=== PATIENT | male | born 1960 | race Caucasian/White ===

== ENCOUNTER 2017-06-21 17:17 | Emergency (ER) | payer SELFPAY ==
[~2017-06-21] VITALS: Ht 177.8 cm; Wt 77.0 kg
[~2017-06-21 17:17] MED LIST: METF500 PO
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
[2017-06-21 17:43] VITALS: BP 133/82; PULSE 92; RESP 20; TEMP 98.2; O2SAT 100
[2017-06-21 17:48] VITALS: BP 133/82; PULSE 92; RESP 18; TEMP 98.2; O2SAT 100
[2017-06-21] MEDS ORDERED: KETOROLAC TROMETHAMINE 60 MG/2 ML (IM) VIAL IM ONE (18:15)
[2017-06-21] MEDS ORDERED: GABA300C5 PO (18:16)
[2017-06-21] MEDS ORDERED: TRAM50TA PO (18:16)
[2017-06-21] MEDS ORDERED: NOVO7030P2 SQ (18:16)
--- NOTE | 2017-06-21 18:22 | RADRPT ---
EXAM DATE/TIME: 06/21/2017 17:50 [facility] COMPARISON: No previous studies available for comparison. INDICATIONS : Right lower leg pain; fall today. MEDICAL HISTORY : None. SURGICAL HISTORY : ORIF right femur. ENCOUNTER: Initial ACUITY: 1 day PAIN SCORE: 10/10 LOCATION: Right lower leg. FINDINGS: The bones are osteopenic. There is a hairline nondisplaced fracture of the proximal tibial shaft just below the tibial tuberosity. No other fracture identified. No dislocation. Remote healed fracture di stal femur with plate fixation. CONCLUSION: 1. Nondisplaced fracture proximal tibial shaft. Jovani Mckeon MD on June 21, 2017 at 18:18 Board Certified Radiologist. This report was verified electronically.
--- NOTE | 2017-06-21 18:23 | RADRPT ---
EXAM DATE/TIME: 06/21/2017 17:55 [facility] COMPARISON: No previous studies available for comparison. INDICATIONS : Right femur pain; fall today. MEDICAL HISTORY : None. SURGICAL HISTORY : ORIF right femur. ENCOUNTER: Initial ACUITY: 1 day PAIN SCORE: 10/10 LOCATION: Right femur. FINDINGS: Remote fracture distal femur with previous plate fixation. Bones osteopenic. No acute fracture. CONCLUSION: 1. Remote fracture right femur with fixation. No acute fracture seen in the femur. Jovani Mckeon MD on June 21, 2017 at 18:20 Board Certified Radiologist. This report was verified electronically.
[2017-06-21 19:19] VITALS: BP 133/85; PULSE 88; RESP 18; O2SAT 98
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
[2017-06-21] MEDS ORDERED: NORC5TAB PO (21:13)
[2017-06-21] MEDS ORDERED: oxyCODONE/ACETAMINOPHEN 5 MG/325 MG TAB PO ONE (21:15)
[2017-06-21 21:30] VITALS: BP 134/77; PULSE 82; RESP 18; O2SAT 99
== END 2017-06-21 22:37 | disposition home or self-care (01) ==
LOC: NEPE 17:17
DX: S82.101A Unspecified fracture of upper end of right tibia, initial encounter for closed fracture (principal); V17.4XXA Pedal cycle driver injured in collision with fixed or stationary object in traffic accident, initial encounter; Y93.55 Activity, bike riding
CPT/HCPCS: 73552; 73590; 73700; 96372; 99284; E0113; J1885; L1830